=== PATIENT | male | born 1970 | race Caucasian/White ===

== ENCOUNTER 2018-07-29 16:49 | Emergency (ER) | payer OTHER ==
[2018-07-29 17:16] VITALS: BP 120/68
[2018-07-29] MEDS ORDERED: Ketorolac INJ* 60 MG/2 ML VIAL IM ONE (17:59)
--- NOTE | 2018-07-29 17:59 | UC ---
Back Pain HPI - HPI Summary HPI Summary: Pt c/o gradual onset of worsening right lower back/buttock pain that began last night. Pt has had two previous back surgeries for herniated discs. - History of Current Complaint Chief Complaint: UCBackPain Stated Complaint: LOWER RIGHT SIDE BACK PAIN Time Seen by Provider: 07/29/18 17:35 Hx Obtained From: Patient Onset/Duration: Sudden Onset, Lasting Hours, Still Present, Worse Since - onset Timing: Constant, Lasting Hours Severity Initially: Moderate Severity Currently: Severe Pain Intensity: 10 Back Pain: Is Discrete @ - right upper medial buttock Character: Sharp, Dull, Aching, Throbbing, Spasmodic, Stiffness, Burning Aggravating Factor(s): Movement Alleviating Factor(s): Position Associated Signs And Symptoms: Positive: Negative - Risk Factors AAA Risk Factors: Negative TAD Risk Factors: Negative Cauda Equina Risk Factors: Negative Epidural Abscess Risk Factors: Negative - Allergies/Home Medications Allergies/Adverse Reactions: Allergies Allergy/AdvReac Type Severity Reaction Status Date / Time No Known Allergies Allergy Verified 07/29/18 17:16 Home Medications: Home Medications Naproxen Sodium [Aleve] 440 mg PO DAILY 07/29/18 [History Confirmed 07/29/18] PMH/Surg Hx/FS Hx/Imm Hx Previously Healthy: Yes - Surgical History Surgical History: Yes Surgery Procedure, Year, and Place: back surgery - 1999 & 2016 L4-L5 - Family History Known Family History: Positive: Cardiac Disease, Hypertension - Social History Occupation: Employed Full-time Lives: With Family Alcohol Use: None Alcohol Amount: 12 PACK/2 WEEK Substance Use Type: None Smoking Status (MU): Heavy Every Day Tobacco Smoker Type: Cigarettes Amount Used/How Often: 1/2/ppd FOR 15 YEARS Have You Smoked in the Last Year: Yes Review of Systems All Other Systems Reviewed And Are Negative: Yes Constitutional: Positive: Negative Skin: Positive: Negative Eyes: Positive: Negative ENT: Positive: Negative Respiratory: Positive: Negative Cardiovascular: Positive: Negative Gastrointestinal: Positive: Negative Genitourinary: Positive: Negative Motor: Positive: Decreased ROM - right lower extremity, low back Neurovascular: Positive: Negative Musculoskeletal: Positive: Arthralgia, Decreased ROM, Myalgia Neurological: Positive: Negative Psychological: Positive: Negative Is Patient Immunocompromised?: No Physical Exam Triage Information Reviewed: Yes Appearance: Pain Distress Vital Signs: Initial Vital Signs Temp 99.1 F 07/29/18 17:12 Pulse 88 07/29/18 17:12 Resp 18 07/29/18 17:12 BP 120/68 07/29/18 17:12 Pulse Ox 99 07/29/18 17:12 Vital Signs Reviewed: Yes Eye Exam: Normal ENT Exam: Normal Dental Exam: Normal Neck exam: Normal Respiratory Exam: Normal Respiratory: Positive: No respiratory distress Musculoskeletal: Positive: ROM Limited @ - low back, pain at upper medial buttock, upper sciatic Neurological Exam: Normal Psychological Exam: Normal Skin Exam: Normal Back Pain Course/Dx - Differential Dx/Diagnosis Differential Diagnosis/HQI/PQRI: Epidural Abscess, Herniated Disc, Strain, Sprain Provider Diagnosis: Sciatic nerve pain Discharge - Sign-Out/Discharge Documenting (check all that apply): Patient Departure All imaging exams completed and their final reports reviewed: No Studies - Discharge Plan Condition: Stable Disposition: HOME Prescriptions: Cyclobenzaprine TAB* [Flexeril 10 MG TAB*] 10 mg PO Q8H PRN #21 tab PRN Reason: Pain predniSONE TAB* [Deltasone 10 MG TAB*] 30 mg PO DAILY #12 tab Patient Education Materials: Sciatica (ED), Lower Back Exercises (ED) Referrals: Bienvenido Trammell MD [Primary Care Provider] - As Soon As Possible - Billing Disposition and Condition Condition: STABLE Disposition: Home - Attestation Statements Provider Attestation: I was available for consult. This patient was seen by the KASSIE. The patient was not presented to, seen by, or examined by me. EK
== END 2018-07-29 18:32 | disposition home or self-care (01) ==
LOC: UCCORT 16:49
DX: M54.30 Sciatica, unspecified side (principal); F17.210 Nicotine dependence, cigarettes, uncomplicated
CPT/HCPCS: 96372; 99212; G0463; J1885